=== PATIENT | male | born 1960 | race Caucasian/White ===

== ENCOUNTER 2024-09-22 04:10 | Observation (INO) | payer MEDICARE ==
[~2024-09-22] VITALS: Ht 167.6 cm; Wt 88.9 kg
[2024-09-22] MEDS ORDERED: SIMETHICONE 40 MG/0.6 ML ML PO ONE (04:30)
[2024-09-22] MEDS: hydroMORPHone 1 MG INJ IVP ONE (04:31)
[2024-09-22 04:37] LABS: BASOPHILS # (AUTO) 0.03 K/uL (0.00-0.20); BASOPHILS % (AUTO) 0.3 % (0.0-5.0); IMMATURE GRANULOCYTE ABSOLUTE 0.06 K/uL (0-1); LYMPHOCYTES # (AUTO) 1.4 K/uL (1.0-4.8); LYMPHOCYTES % (AUTO) 12.3 % (21.0-51.0); MEAN CORPUSCULAR HEMOGLOBIN 28.9 pg (27.0-33.0); MEAN CORPUSCULAR HGB CONC 33.7 g/dL (32.0-36.0); MONOCYTES # (AUTO) 0.8 K/uL (0.1-1.0); NEUTROPHILS # (AUTO) 8.9 K/uL (1.8-7.7); NEUTROPHILS % (AUTO) 79.9 % (40.0-77.0); PLATELET COUNT (AUTO) 358 K/uL (130-400); RED CELL DISTRIBUTION WIDTH 12.9 % (11.0-15.5); WHITE BLOOD COUNT (AUTO) 11.2 K/uL (4.8-10.8)
--- NOTE | 2024-09-22 04:46 | ERN ---
ED Note History of Present Illness Stated Complaint: ABDOMINAL DISTENTION Chief Complaint: Abdominal Pain Time Seen by MD: 04:31 Dictation: The patient is a 63-year-old male with a medical history that includes hiatal hernia and hypertension presented to the emergency department with primary complaints of abdominal pain and distension that have persisted for the last 10 hours. According to the patient, the onset was sudden, and he describes the sensation as if his abdomen is inflated. He reports significant discomfort, characterizing the pain as generalized and severe, rating it a 10 out of 10, with no identifiable aggravating or alleviating factors. The patient has experienced 4 to 5 loose bowel movements today but denies any episodes of hematemesis, hematochezia, nausea, or vomiting. Five days prior, he consulted his primary care physician, Dr. Lino Vila, for sinus infections and was prescribed azithromycin and prednisone. The patient has no history of smoking, alcohol consumption, or drug use, and he reports no previous occurrences of similar symptoms. Allergies: Coded Allergies: No Known Drug Allergies (Unverified Allergy, Unknown, 09/22/24) Past Medical History Past Medical History: Hypertension Surgical History: Other Surgical History Other: RIGHT KNEE SX, HIATAL HERNIA REPAIR Review of System Dictation Constitutional: Negative for fever,chills, and weight loss Eyes: Negative for injury, pain,redness, and discharge ENT: Negative for injury,pain or swelling Cardiovascular: Negative for chest pain, palpitations, and edema Respiratory: Negative for shortness of breath, cough, and wheezing, Abdomen/GI: Positive for abdominal pain negative for nausea, vomiting, diarrhea, and constipation Back: Negative for injury and pain : Negative for injury, bleeding and discharge MS/Extremity: Negative for injury and deformity Skin: Negative for rash, and discoloration Neuro: Negative for headache, weakness, numbness, tingling, and seizure Psych: Negative for suicide ideation, homicidal ideation, and hallucinations Initial Vital Sign VS Vital Signs Date Time Temp Pulse Resp B/P (MAP) Pulse Ox O2 Delivery O2 Flow Rate FiO2 09/22/24 04:16 98.4 113 18 136/92 100 Room Air 0 09/22/24 04:31 21 Physical Exam Dictation General: awake, alert, NAD Head/Face: Normocephalic, atraumatic Eyes: PERRL, EOMI, vision at baseline ENT: oral cavity clear, TMs clear, no signs of infection Neck: Trachea midline, supple, no nuchal rigidity Cardiovascular: RRR, normal S1/S2, No MRGs, no JVD Respiratory: CTAB, no respiratory distress, No rales or wheezes Abdomen: diffused tenderness, non-distended, normal bowel sounds, no guarding or rebound. Skin: Warm, dry, normal turgor, no rash MS/Extremity: Pulses equal, no cyanosis, neurovascular intact, FROM Neuro: COAx4, GCS 15, strength 5/5, CN 2-12 intact, normal cerebellar exam, normal gait, Psych: Normal behavior, mood, and affect normal Results (Laboratory/Radiology) Laboratory/Radiology Laboratory Tests Test 09/22/24 04:27 09/22/24 07:10 White Blood Count 11.2 K/uL (4.8-10.8) H Red Blood Count 5.70 MIL/uL (4.50-6.20) Hemoglobin 16.5 g/dL (14.0-18.0) Hematocrit 49.0 % (42-54) Mean Corpuscular Volume 86.0 fL (79-99) Mean Corpuscular Hemoglobin 28.9 pg (27.0-33.0) Mean Corpuscular Hemoglobin Concent 33.7 g/dL (32.0-36.0) Red Cell Distribution Width 12.9 % (11.0-15.5) Platelet Count 358 K/uL (130-400) Mean Platelet Volume 10.2 fL (7.5-10.5) Immature Granulocyte % (Auto) 0.5 % (0-1) Neutrophils (%) (Auto) 79.9 % (40.0-77.0) H Lymphocytes (%) (Auto) 12.3 % (21.0-51.0) L Monocytes (%) (Auto) 7.0 % (3.0-13.0) Eosinophils (%) (Auto) 0.0 % (0.0-8.0) Basophils (%) (Auto) 0.3 % (0.0-5.0) Neutrophils # (Auto) 8.9 K/uL (1.8-7.7) H Lymphocytes # (Auto) 1.4 K/uL (1.0-4.8) Monocytes # (Auto) 0.8 K/uL (0.1-1.0) Eosinophils # (Auto) 0.00 K/uL (0.00-0.70) Basophils # (Auto) 0.03 K/uL (0.00-0.20) Absolute Immature Granulocyte (auto 0.06 K/uL (0-1) Nucleated Red Blood Cells 0.0 % (0.0-0.19) Sodium Level 138 mmol/L (136-145) Potassium Level 4.1 mmol/L (3.5-5.1) Chloride Level 98 mmol/L (101-111) L Carbon Dioxide Level 26 mmol/L (21-32) Blood Urea Nitrogen 39 mg/dL (7-18) H Creatinine 1.7 mg/dL (0.5-1.3) H Glomerular Filtration Rate Calc 44 mL/min (>90) Random Glucose 140 mg/dL (70-105) H Total Calcium 11.2 mg/dL (8.5-10.1) H Total Bilirubin 0.4 mg/dL (0.2-1.0) Aspartate Amino Transf (AST/SGOT) 38 U/L (10-37) H Alanine Aminotransferase (ALT/SGPT) 44 U/L (12-78) Alkaline Phosphatase 89 U/L (50-136) Total Creatine Kinase 207 U/L (21-232) Troponin I High Sensitivity 10 ng/L (4-75) Total Protein 8.6 g/dL (6.0-8.3) H Albumin 4.5 g/dL (3.5-5.0) Amylase Level 65 U/L (25-115) Lipase 84 U/L (16-77) H Lactic Acid Level 1.8 mmol/L (0.8-2.5) Labs Reviewed?: Yes X-RAY Comment: REASON: CHEST PAIN ORDERING PHYSICIAN: ALISE PETERSON DO PROCEDURE: CXR1VW - CHEST 1VW CHEST 1VW REASON: CHEST PAIN COMPARISON: None. FINDINGS: Single view of the chest was obtained. Lungs are clear. Heart size is normal. There is no pulmonary vascular congestion. Mediastinum and bony thorax appear unremarkable. IMPRESSION: 1. Normal single view chest x-ray. DICTATED BY: CINTIA COTA MD DATE: 09/22/[address] Scan Comment: REASON: abd pain ORDERING PHYSICIAN: ALISE PETERSON DO PROCEDURE: [id number] - CT ANGIO ABDOMEN PELVIS CT ANGIO ABDOMEN PELVIS REASON: abd pain COMPARISON: None. TECHNIQUE: Images are obtained from lung bases to the symphysis pubis before and during bolus IV contrast infusion. 2-D and 3-D multiplanar reconstruction images were performed. FINDINGS: Lung bases are clear. There are no focal liver lesions. There are multiple bilateral very small kidney stones, no evidence of mass or hydronephrosis.. Spleen and pancreas appear unremarkable. The gallbladder appears normal as well. There is moderate air and fluid distention of the stomach. Duodenal C-loop appears patent. Small bowel caliber is unremarkable. There is no evidence of obstruction. Bowel loops appear unremarkable. This includes normal appearance of the appendix There is no evidence of free fluid or intraperitoneal air. There are no focal fluid collections. CT angiogram portion of the exam shows mild arthroscopic plaque in the aorta. There is no aneurysm or stenosis. Renal and mesenteric artery origins are widely patent. Common and external iliac arteries appear normal as do both common femoral arteries. Pelvic soft tissues appear unremarkable. The anterior abdominal wall is intact. Osseous structures appear unremarkable. IMPRESSION: 1. Moderate to air and fluid distention of the stomach without CT evidence of outlet obstruction. 2. Mild plaque in the aorta, the CT angiogram portion of the exam is otherwise unremarkable. 3. Normal-appearing a large and small bowel loops, no evidence of ischemic change. CT was performed with one or more following dose reduction techniques: automated exposure control, adjustment of the mA and kv according to patient's size, or use of a iterative reconstruction technique. DICTATED BY: CINTIA COTA MD DATE: 09/22/24 0831 ED Course ED Course Orders Procedure Category Date Status Time Hydromorphone 1 Mg PHA 09/22/24 Complete Inj (Dilaudid 1mg Inj 04:30 Vital Signs Per CPOE 09/22/24 Transmitted Routine 04:20 Saline Lock Iv CPOE 09/22/24 Transmitted 04:20 Cbc With Differential LAB 09/22/24 Complete 04:20 Comprehensive LAB 09/22/24 Complete Metabolic Panel 04:20 Lipase LAB 09/22/24 Complete 04:20 Amylase LAB 09/22/24 Complete 04:20 Urinalysis Profile LAB 09/22/24 Logged 04:20 12 Lead Ekg Tracing- EKG 09/22/24 Complete Technical 04:20 Creatine Kinase, Total LAB 09/22/24 Complete 04:20 Troponin I High LAB 09/22/24 Complete Sensitivity 04:20 Chest 1vw RAD 09/22/24 Resulted 04:20 Pantoprazole 40mg Inj PHA 09/22/24 Complete (Protonix 40mg Inj 04:30 Simethicone (Mylicon) PHA 09/22/24 Complete 04:30 Simethicone (Mylicon) PHA 09/22/24 Complete 05:00 0.9%Nacl 1000ml (Ns PHA 09/22/24 Complete 1000ml) 05:30 Fentanyl Citrate Pf PHA 09/22/24 Complete 0.05 Mg/Ml (Fentanyl 05:30 Lactic Acid LAB 09/22/24 Complete 05:[address] 09/22/24 Resulted Pelvis 05:28 Iohexol (Omnipaque) PHA 09/22/24 Complete 05:46 Midazolam Hcl (Versed) PHA 09/22/24 Complete 06:30 Fentanyl Citrate Pf PHA 09/22/24 Complete 0.05 Mg/Ml (Fentanyl 06:30 Ng Tube Insertion CPOE 09/22/24 Transmitted 06:17 Current Medications Medications (Trade) Dose Ordered Sig/Gerson Route PRN Reason Start Time Stop Time Status Last Admin Dose Admin Fentanyl Citrate (FENTanyl CITRate PF 50 MCG/ 1 ML 2ML VIAL) 50 mcg ONCE ONCE IVP 09/22/24 06:30 09/22/24 06:31 DC 09/22/24 06:34 Fentanyl Citrate (FENTanyl CITRate PF 50 MCG/ 1 ML 2ML VIAL) 100 mcg ONCE ONCE IVP 09/22/24 05:30 09/22/24 05:34 DC 09/22/24 05:40 Hydromorphone HCl (DiLAUDid 1MG INJ) 1 mg ONCE ONCE IVP 09/22/24 04:30 09/22/24 04:31 DC 09/22/24 04:31 Iohexol (Omnipaque) 35,000 mg STK-MED ONCE IV 09/22/24 05:46 09/22/24 05:46 DC Midazolam HCl (Versed) 2 mg ONCE ONCE IVP 09/22/24 06:30 09/22/24 06:31 DC 09/22/24 06:33 Pantoprazole Sodium (PROTonix 40MG INJ) 40 mg ONCE ONCE IVP 09/22/24 04:30 09/22/24 04:34 DC 09/22/24 04:56 Simethicone (Mylicon) 40 mg ONCE ONCE PO 09/22/24 04:30 09/22/24 04:50 DC Simethicone (Mylicon) 40 mg ONCE ONCE PO 09/22/24 05:00 09/22/24 05:01 DC 09/22/24 04:56 Sodium Chloride 1,000 ml @ 0 mls/hr ONCE ONCE IV 09/22/24 05:30 09/22/24 05:31 DC 09/22/24 05:16 Vital Signs Date Time Temp Pulse Resp B/P (MAP) Pulse Ox O2 Delivery O2 Flow Rate FiO2 09/22/24 04:31 98.6 110 20 145/66 100 Room Air* 0 21 09/22/24 04:16 98.4 113 18 136/92 100 Room Air 0 Medical Decision Making MDM MDM: Differential diagnosis: SBO, Intractable abdominal pain, kidney injury Rationale: Tests considered and ordered secondary to shared decision making include: labs, ECG and radiology Risk of complication and/or morbidity or mortality of patient management: None Medications-Per medication reconciliation Need for hospitalization: Patient does meet criteria for hospitalization. Need for emergency major/minor surgery: No There are no social concerns with this patient. I independently interpreted the test that were performed, results were reviewed by me and considered findings on radiology if ordered. Medical management and examination interpretation discussions were had by me with other qualified healthcare professionals as indicated for the patient's care. DX & DISP Disposition: Inpatient Decision to Admit Date: Sep 22, 2024 Decision to Admit Time: 09:27 Departure Impression: Primary Impression: Intractable abdominal pain Additional Impression: Kidney injury Condition: Stable Referrals: NONE (PCP) LUCINDA RIVERS MD Sep 22, 2024 04:46 DELMAR TYLER MD Sep 22, 2024 09:32
[2024-09-22 04:52] LABS: CREATININE 1.7 mg/dL (0.5-1.3); POTASSIUM 4.1 mmol/L (3.5-5.1)
[2024-09-22 04:56] LABS: ALBUMIN 4.5 g/dL (3.5-5.0); BILIRUBIN,TOTAL 0.4 mg/dL (0.2-1.0); TOTAL PROTEIN, SERUM 8.6 g/dL (6.0-8.3)
[2024-09-22] MEDS: SIMETHICONE 80 MG TAB.CHEW PO ONE (04:56)
[2024-09-22] MEDS: PANTOPrazole 40 MG/VIAL IVP ONE (04:56)
[2024-09-22] MEDS: 0.9%NACL 1000ML 1,000 ML IV ONE (05:16)
[2024-09-22] MEDS: FENTanyl CITRate PF 50 MCG/1 ML 2ML VIAL IVP ONE ×2 (05:40→06:34)
[2024-09-22] MEDS ORDERED: IOHEXOL 350 MG/ML 100ML INFUS..BTL IV ONE (05:46)
[2024-09-22] MEDS: MIDAZOLAM HCL 1 MG/ML 2ML VIAL IVP ONE (06:33)
--- NOTE | 2024-09-22 06:55 | NUR ---
REPORT RECEIVED FROM LAURA RUSH
--- NOTE | 2024-09-22 07:41 | EKG ---
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
--- NOTE | 2024-09-22 08:48 | HMCIMG ---
CT ANGIO ABDOMEN PELVIS REASON: abd pain COMPARISON: None. TECHNIQUE: Images are obtained from lung bases to the symphysis pubis before and during bolus IV contrast infusion. 2-D and 3-D multiplanar reconstruction images were performed. FINDINGS: Lung bases are clear. There are no focal liver lesions. There are multiple bilateral very small kidney stones, no evidence of mass or hydronephrosis.. Spleen and pancreas appear unremarkable. The gallbladder appears normal as well. There is moderate air and fluid distention of the stomach. Duodenal C-loop appears patent. Small bowel caliber is unremarkable. There is no evidence of obstruction. Bowel loops appear unremarkable. This includes normal appearance of the appendix There is no evidence of free fluid or intraperitoneal air. There are no focal fluid collections. CT angiogram portion of the exam shows mild arthroscopic plaque in the aorta. There is no aneurysm or stenosis. Renal and mesenteric artery origins are widely patent. Common and external iliac arteries appear normal as do both common femoral arteries. Pelvic soft tissues appear unremarkable. The anterior abdominal wall is intact. Osseous structures appear unremarkable. IMPRESSION: 1. Moderate to air and fluid distention of the stomach without CT evidence of outlet obstruction. 2. Mild plaque in the aorta, the CT angiogram portion of the exam is otherwise unremarkable. 3. Normal-appearing a large and small bowel loops, no evidence of ischemic change. CT was performed with one or more following dose reduction techniques: automated exposure control, adjustment of the mA and kv according to patient's size, or use of a iterative reconstruction technique.
--- NOTE | 2024-09-22 08:52 | HMCIMG ---
CHEST 1VW REASON: CHEST PAIN COMPARISON: None. FINDINGS: Single view of the chest was obtained. Lungs are clear. Heart size is normal. There is no pulmonary vascular congestion. Mediastinum and bony thorax appear unremarkable. IMPRESSION: 1. Normal single view chest x-ray.
--- NOTE | 2024-09-22 09:18 | NUR ---
PT PROVIDED ICE CHIPS POST NGT REMOVAL
[2024-09-22] MEDS ORDERED: morPHINE 2 MG SYG IVP PRN (10:00)
[2024-09-22] MEDS ORDERED: ondanSETRON 4MG INJ IVP PRN (10:00)
[2024-09-22] MEDS ORDERED: acetaMINOPHEN 325 MG TAB PO PRN (10:00)
[2024-09-22] MEDS: 0.9%NACL 1000ML 1,000 ML IV SCH (11:24)
[2024-09-22 11:47] LABS: APPEARANCE,URINE CLEAR (CLEAR); BILIRUBIN,URINE NEGATIVE (NEGATIVE); COLOR,URINE LIGHT-YELLOW (YELLOW); GLUCOSE, URINE (UA) NEGATIVE (NEGATIVE); KETONES,URINE NEGATIVE (NEGATIVE); LEUKOCYTE ESTERASE ,URINE NEGATIVE Leu/uL (NEGATIVE); NITRATE,URINE NEGATIVE (NEGATIVE); OCCULT BLOOD,URINE NEGATIVE (NEGATIVE); PROTEIN,URINE 20 mg/dL (NEGATIVE); UROBILINOGEN,URINE 0.2 mg/dL (0.2-1.0)
[2024-09-22 11:48] LABS: ADD UA MICROSCOPIC YES
[2024-09-22 11:49] LABS: MUCUS,URINE RARE LPF (None Seen); RBC,URINE 0-1 /HPF (0-1); SQUAMOUS EPITHELIAL CELL,UR RARE /HPF (0-2); WBC,URINE 0-1 /HPF (0-1)
--- NOTE | 2024-09-22 12:00 | NUR ---
RACHEL GROVER HERE TO ASSESS/INTERVIEW PT.
[2024-09-22] MEDS ORDERED: cefTRIAXone 1G VIAL IVPB SCH (13:00)
[2024-09-22] MEDS ORDERED: hydrALAZine 20MG/ML VIAL IV PRN (13:00)
--- NOTE | 2024-09-22 13:00 | HP ---
[facility] HISTORY AND PHYSICAL Date of Service: Sep 22, 2024 Time of Service: 12:44 HISTORY OF PRESENT ILLNESS: 63-year-old male with past medical history of hypertension, hiatal hernia, osteoarthritis, who presented to [facility] [place] [place] ED earlier today with complaints of abdominal pain associated with distention, and nausea for the past four days. Patient states symptoms began our progressively worsened last night, after having a meal, and noted with worsening distention, abdominal rigidness. Patient denied chest pain shortness of breath fever chills vomiting. He did report some mild loose stools, no reports of hematochezia or melena. Patient states in recent days he he was seen by his PCP for a sinus infection prescribed Zithromax, and prednisone. Due to worsening of his symptoms he decided to come to the hospital for further evaluation. Upon arrival to ED he was noted afebr ile, blood pressure 136/92, heart rate 110, respirations 20, O2 saturation 100%. Further evaluation lab significant for WBCs 11 K, BUN 39, creatinine 1.7, glucose 140, calcium 11.2, AST , lipase 84. CXR with no acute findings. CT a/P revealed moderate to air and fluid distention without evidence of outlet obstruction, normal-appearing large and small bowel loops no evidence of i schemic change. In the ED patient was kept NPO, initiated on IVF, and NGT placed to suction. Patient was noted with improvement in abdominal distention, NGT then removed. Request then made to admit to the hospital for further evaluation and management. REVIEW OF SYSTEMS CONSTITUTIONAL: Denies fevers, chills, or night sweats. No unintentional weight loss reported. NEUROLOGICAL: Denies headache, amaurosis fugax, motor weakness, sensory de ficit, vertigo/spinning sensation, gait abnormalities, or tremors. ENT: No hearing loss, otalgia, otorrhea, rhinitis, rhinorrhea, hoarseness, or sore throat. CARDIOVASCULAR: Denies any exertional angina, dyspnea on exertion, orthopnea, paroxysmal nocturnal dyspnea, palpitations, life-threatening arrhythmias, claudication. PULMONARY: Denies any shortness of breath, cough, phlegm/sputum, hemoptysis, pleuritic chest pain. SLEEP: Denies morning headaches, daytime somnolence or napping. Denies difficulty falling asleep, staying asleep, waking from sleep. Denies knowledge of snoring. GASTROINTESTINAL: Denies any type of dysphagia to either liquids or solids. Denies nausea, vomiting, pyrosis, early satiety, abdominal pain, diarrhea, constipation, or changes in stool consistency or caliber. Denies coffee-ground emesis, hematemesis, hematochezia, or melanotic stools. GENITOURINARY: Denies frequency, urgency, nocturia, hematuria or incontinence (Storage/Irritative symptoms.) Low urinary stream, straining to void, urinary intermittency or hesitancy, splitting of the voiding stream, terminal dribbling. ENDOCRINOLOGIC: Denies polyuria, polydipsia, polyphagia or heat/cold intolerances. HEMATOLOGIC: Denies thrombophilia/previous clots, or coagulopathy/bleeding disorders. ONCOLOGIC: Denies personal history of malignancy. DERMATOLOGIC: Denies rashes or pruritus. PSYCHIATRIC: Denies any suicidal or homicidal ideation. Denies hallucinations. PAST MEDICAL HISTORY: As mentioned in HPI PAST SURGICAL HISTORY: Hiatal hernia surgery Right total knee replacement Rotator cuff surgery Tonsillectomy PAST SOCIAL HISTORY: No tobacco no alcohol no substance abuse FAMILY HISTORY: Noncontributory Coded Allergies: No Known Drug Allergies (Unverified Allergy, Unknown, 09/22/24) PHYSICAL EXAM GENERAL APPEARANCE: The patient is awake, alert, and oriented, in no acute cardiopulmonary distress. NEUROLOGICAL: Cranial nerves II-XII grossly intact. Motor is 5/5 in bilateral upper and lower extremities proximal to distal. No sensory deficits. HEENT: Face is symmetric. Pupils are equal and reactive. Extraocular movements are intact. NECK: Supple. No JVD. No thyromegaly. No submental, submandibular, pre- /postauricular, occipital or supraclavicular lymphadenopathy. CHEST: Normal chest expansion. No Telemetry. LUNGS: Absence of any rales, rhonchi or any wheezing. CARDIOVASCULAR: Regular. S1 and S2 normal. No appreciable rubs, murmurs or gallops. ABDOMEN: Soft, nontender, and nondistended. There is no rebound, voluntary guarding, or rigidity. : Deferred. No Maher. EXTREMITIES: Non-edematous and not cyanotic. No clubbing. Good capillary refill. SKIN: No skin breakdown. Vital Sign (Last 24 Hours) 09/22/24 04:31 Temp 98.6 Pulse 110 Resp 20 B/P (MAP) 145/66 Pulse Ox 100 O2 Delivery Room Air* O2 Flow Rate 0 FiO2 21 LABS: Laboratory: Test 09/22/24 11:27 09/22/24 07:10 09/22/24 04:27 Range/Units Urine Color LIGHT-YELLOW YELLOW Urine Appearance CLEAR CLEAR Urine pH 7.0 5.0-8.0 Urine Specific [place] OVER 1.001-1.031 Urine Protein 20 H NEGATIVE mg/dL Urine Glucose (UA) NEGATIVE NEGATIVE mg/dL Urine Ketones NEGATIVE NEGATIVE mg/dL Urine Occult Blood NEGATIVE NEGATIVE Urine Nitrate NEGATIVE NEGATIVE Urine Bilirubin NEGATIVE NEGATIVE mg/dL Urine Urobilinogen 0.2 0.2-1.0 mg/dL Urine Leukocyte Esterase NEGATIVE NEGATIVE Dk/uL Urine RBC 0-1 0-1 /HPF Urine WBC 0-1 0-1 /HPF Urine Squamous Epithelial Cells RARE 0-2 /HPF Urine Bacteria None None Seen /HPF Lactic Acid Level 1.8 0.8-2.5 mmol/L White Blood Count 11.2 H 4.8-10.8 K/uL Red Blood Count 5.70 4.50-6.20 MIL/uL Hemoglobin 16.5 14.0-18.0 g/dL Hematocrit 49.0 42-54 % Mean Corpuscular Volume 86.0 79-99 fL Mean Corpuscular Hemoglobin 28.9 27.0-33.0 pg Mean Corpuscular Hemoglobin Concent 33.7 32.0-36.0 g/dL Red Cell Distribution Width 12.9 11.0-15.5 % Platelet Count 358 130-400 K/uL Mean Platelet Volume 10.2 7.5-10.5 fL Immature Granulocyte % (Auto) 0.5 0-1 % Neutrophils (%) (Auto) 79.9 H 40.0-77.0 % Lymphocytes (%) (Auto) 12.3 L 21.0-51.0 % Monocytes (%) (Auto) 7.0 3.0-13.0 % Eosinophils (%) (Auto) 0.0 0.0-8.0 % Basophils (%) (Auto) 0.3 0.0-5.0 % Neutrophils # (Auto) 8.9 H 1.8-7.7 K/uL Lymphocytes # (Auto) 1.4 1.0-4.8 K/uL Monocytes # (Auto) 0.8 0.1-1.0 K/uL Eosinophils # (Auto) 0.00 0.00-0.70 K/uL Basophils # (Auto) 0.03 0.00-0.20 K/uL Absolute Immature Granulocyte (auto 0.06 0-1 K/uL Nucleated Red Blood Cells 0.0 0.0-0.19 % Sodium Level 138 136-145 mmol/L Potassium Level 4.1 3.5-5.1 mmol/L Chloride Level 98 L 101-111 mmol/L Carbon Dioxide Level 26 21-32 mmol/L Blood Urea Nitrogen 39 H 7-18 mg/dL Creatinine 1.7 H 0.5-1.3 mg/dL Glomerular Filtration Rate Calc 44 >90 mL/min Random Glucose 140 H 70-105 mg/dL Total Calcium 11.2 H 8.5-10.1 mg/dL Total Bilirubin 0.4 0.2-1.0 mg/dL Aspartate Amino Transf (AST/SGOT) 38 H 10-37 U/L Alanine Aminotransferase (ALT/SGPT) 44 12-78 U/L Alkaline Phosphatase 89 50-136 U/L Total Creatine Kinase 207 21-232 U/L Troponin I High Sensitivity 10 4-75 ng/L Total Protein 8.6 H 6.0-8.3 g/dL Albumin 4.5 3.5-5.0 g/dL Amylase Level 65 25-115 U/L Lipase 84 H 16-77 U/L Current Medications Medications (Trade) Dose Ordered Sig/Gerson Route PRN Reason Start Time Stop Time Status Last Admin Dose Admin Acetaminophen (TYLenol 325MG TAB) 650 mg Q6H PRN PO MILD PAIN (1-3) 09/22/24 10:00 10/22/24 09:59 Morphine Sulfate (morPHINE 2MG SYG) 2 mg [id number] PRN IVP SEVERE PAIN (7-10) 09/22/24 10:00 09/29/24 09:59 Ondansetron HCl (zoFRAN 4MG INJ) 4 mg Q6H PRN IVP NAUSEA/VOMITING 09/22/24 10:00 10/22/24 09:59 Pantoprazole Sodium (PROTonix 40MG INJ) 40 mg DAILY IVP 09/23/24 09:00 10/23/24 08:59 Sodium Chloride 1,000 ml @ 100 mls/hr Q10H IV 09/22/24 10:00 10/22/24 09:59 09/22/24 11:24 100 MLS/HR DIAGNOSTICS / RADIOLOGY: [ ] ASSESSMENT: Acute ileus, improved, POA MONSERRAT POA Leukocytosis POA Essential hypertension History of hiatal hernia repair PLAN: Admit patient to medical floor under hospitalist team Obtain home medications, reconcile and resume accordingly On presentation to ED patient was noted with significant abdominal distension/acute ileus, for which NGT to suction was placed, and at this time seems to have resolved. NGT has been removed. I will continue him on maintenance IVF with NS at 100 mL/hour. Initiate CLD, and advance as tolerated. For further management of MONSERRAT, continue IVF as above. Follow up renal panel. Consider Nephrology consult if no improvement or worsening of renal function is noted. Patient was noted with a mild leukocytosis of 11 K, possibly secondary to recent prednisone use. I will request blood and urine cultures, check procalcitonin level. Start patient on broad-spectrum IV antibiotics with Rocephin1 g IV daily. Deescalate/discontinue antibiotics if no signs of infection. DVT and GI prophylaxis P.r.n. medications for fever, pain, nausea, constipation Follow-up a.m. labs Further orders per hospital course ADVANCED CARE PLANNING 1. Which of the following were discussed? Hospice Care - No Therapeutic options - Yes Advance Directives - Yes Other discussions - 2. Discussed with who? The patient 3. Voluntary nature of this service was explained to the patient? Yes 4. Amount of time spent - ___ 20 minutes ____ 5. Reviewed by Physician? (if this service was performed by NPP) Yes DENISSE RAMOS Sep 22, 2024 13:00
--- NOTE | 2024-09-22 14:00 | NUR ---
PT STATED HE WAS NOT VERY HAPPY ABOUT HAVING TO AWAIT A BED UPSTAIRS.
--- NOTE | 2024-09-22 16:22 | NUR ---
AMA PT VERBALIZED THAT HE WISHES TO LEAVE AMA. HE STATES HE FEELS BETTER AND DOES NOT WANT TO BE WAITING IN THE ER FOR A ROOM. HE FEELS HE CANNOT SLEEP OR BE COMFORTABLE. DENISSE RAMOS WAS MADE AWARE
[2024-09-22 16:53] VITALS: BP 134/86; PULSE 108; RESP 17; TEMP 98.3; O2SAT 97
[2024-09-23] MEDS ORDERED: PANTOPrazole 40 MG/VIAL IVP SCH (09:00)
== END 2024-09-22 17:09 | disposition left against medical advice (07) ==
LOC: EDH 04:10 → EDHIP 09:31
PROVIDERS: ADMIT Internal Medicine; ATTEND Internal Medicine
DX: K56.7 Ileus, unspecified (principal); N17.9 Acute kidney failure, unspecified; D72.829 Elevated white blood cell count, unspecified; I10 Essential (primary) hypertension; M19.90 Unspecified osteoarthritis, unspecified site; R10.84 Generalized abdominal pain; K44.9 Diaphragmatic hernia without obstruction or gangrene; Z96.651 Presence of right artificial knee joint
CPT/HCPCS: 96374; 96376; 96375; 96361; 99285; 82150; 82550; 84484; 80053; 83690; 85025; 87040 ×2; 87086; 83605; 81001; 36415; 71045; 74174; 93005; 84145; G0378 ×7; J3010 ×2; J1171; J7030; J2250; J2470; Q9967